=== PATIENT | male | born 1970 | race Caucasian/White ===

== ENCOUNTER → 2016-03-31 | Outpatient (REF) | payer OTHER ==
[~2016-03-31] MED LIST: /CELE20CA; /ZOLP6ER; ALBU17IN2 INH; AMBI10TA PO; ASPI81TAEC PO; BACL10TA2; BACL10TA2 PO; COLA100C2; FOLI1TAB2 PO; FOLI400T PO; LEVA500T PO; LYRI300C; LYRI300C PO; MORP-38 PO; MS C30TA2; PRAV40TA; PRAV80TA PO; PRED10PA2 PO; PROVASTATIN; VICO5TAB
[2016-03-31 05:42] LABS: MEAN CORPUSCULAR HEMOGLOBIN 30.3 pg (27.0-33.0); MEAN CORPUSCULAR HGB CONC 34.9 g/dl (32.0-36.5); PLATELET COUNT, AUTOMATED 221 k/mm3 (150-450); RED CELL DISTRIBUTION WIDTH 12.7 % (11.5-14.5); WHITE BLOOD COUNT 8.5 K/mm3 (4.0-10.0)
[2016-03-31 06:13] LABS: EOSINOPHILS 7 % (0-5); PLATELET CLUMPS SMALL AMT
== END ==
LOC: M LAB REF 05:16
PROVIDERS: ATTEND Family Medicine
DX: J13 Pneumonia due to Streptococcus pneumoniae (principal)

== ENCOUNTER → 2016-05-27 | Outpatient (CLI) | payer OTHER | LOC: M SLEEP 20:10 | PROVIDERS: ATTEND Nurse Practitioner Adult Health | DX: G47.30 Sleep apnea, unspecified (principal) ==

== ENCOUNTER → 2016-06-02 | Outpatient (REF) | payer OTHER ==
[2016-06-02 10:24] LABS: ALBUMIN 4.2 GM/DL (3.2-5.2); ALBUMIN/GLOBULIN RATIO 1.45 (1.00-1.93); ALKALINE PHOSPHATASE 50 U/L (45-117); ALT/SGPT 24 U/L (12-78); ANION GAP 7 MEQ/L (8-16); AST/SGOT 15 U/L (15-37); BILIRUBIN,TOTAL 0.3 MG/DL (0.2-1.0); BLOOD UREA NITROGEN 14 MG/DL (7-18); CALCIUM LEVEL 8.6 MG/DL (8.5-10.1); CARBON DIOXIDE LEVEL 32 MEQ/L (21-32); CHLORIDE LEVEL 105 MEQ/L (98-107); CHOLESTEROL LEVEL 134 MG/DL (<200); CREATININE FOR GFR 0.92 MG/DL (0.70-1.30); GLOMERULAR FILTRATION RATE > 60.0 (>60); GLUCOSE, FASTING 89 MG/DL (70-105); POTASSIUM SERUM 4.5 MEQ/L (3.5-5.1); SODIUM LEVEL 144 MEQ/L (136-145); TOTAL PROTEIN 7.1 GM/DL (6.4-8.2); TRIGLYCERIDES LEVEL 111 MG/DL (<150)
== END ==
LOC: M LAB REF 09:28
PROVIDERS: ATTEND Family Medicine
DX: E78.2 Mixed hyperlipidemia (principal)

== ENCOUNTER → 2016-07-02 | Outpatient (CLI) | payer OTHER ==
--- NOTE | 2016-07-04 09:08 | SLEEPCENT ---
DATE OF PROCEDURE: 07/02/2016 ORDERED BY: MORIAH Arteaga Nocturnal polysomnography was performed for titration of pressure therapy in this patient with obstructive sleep apnea syndrome, apnea hypopnea index of 24.2. For testing, the patient was fit with a [employer]Med Quattro full face mask of large size. 5 cm of water pressure were applied to the circuit and the lights were extinguished. 8 hours and 19 minutes of data were reviewed. There were 434 minutes of sleep identified. Sleep latency was mildly prolonged at 25 minutes. Rapid eye movement (REM) latency was normal at 69 minutes. Sleep architecture was good with 5 REM periods. Overall efficiency was 87%. EKG showed a sinus rhythm with an average heart rate of 76 beats per minute. EEG showed normal waveforms for awake and sleep. Respiratory events were fully palliated with CPAP at pressure of +12. CPAP tolerance was food. Remaining measures of sleep physiology were normal. IMPRESSION: Obstructive sleep apnea syndrome (G47.33). RECOMMENDATION: Nightly use of pressure therapy 12 cm of water.
== END ==
LOC: M SLEEP 19:47
PROVIDERS: ATTEND Nurse Practitioner Adult Health
DX: G47.33 Obstructive sleep apnea (adult) (pediatric) (principal)

== ENCOUNTER → 2016-07-15 | Outpatient (REF) | payer OTHER | LOC: M SFHCLERA 09:49 | PROVIDERS: ATTEND Family Medicine | DX: E55.9 Vitamin D deficiency, unspecified (principal) | CPT/HCPCS: 82306; G0463 ==

== ENCOUNTER → 2017-01-15 | Outpatient (REF) | payer OTHER ==
[~2017-01-15] MED LIST changes: -FOLI1TAB2 PO; +FOLI1TAB4 PO; +LEVA1TAB2 PO; -LEVA500T PO
[2017-01-26 08:13] LABS: SUMMARY SEE SEPARATE REPORT
== END ==
LOC: M SFHCLERA 08:58
PROVIDERS: ATTEND Family Medicine
DX: M54.41 Lumbago with sciatica, right side (principal); Z79.899 Other long term (current) drug therapy
CPT/HCPCS: 80307; 90686; G0463

== ENCOUNTER → 2017-05-22 | Outpatient (REF) | payer OTHER ==
[2017-05-22 09:40] LABS: ALBUMIN 3.9 GM/DL (3.2-5.2); ALBUMIN/GLOBULIN RATIO 1.26 (1.00-1.93); ALKALINE PHOSPHATASE 59 U/L (45-117); ALT/SGPT 51 U/L (12-78); ANION GAP 7 MEQ/L (8-16); AST/SGOT 25 U/L (7-37); BILIRUBIN,TOTAL 0.4 MG/DL (0.2-1.0); BLOOD UREA NITROGEN 15 MG/DL (7-18); CALCIUM LEVEL 8.6 MG/DL (8.5-10.1); CARBON DIOXIDE LEVEL 26 MEQ/L (21-32); CHLORIDE LEVEL 109 MEQ/L (98-107); CHOLESTEROL LEVEL 148 MG/DL (<200); CHOLESTEROL RISK RATIO 4.228 (<5); CREATININE FOR GFR 0.82 MG/DL (0.70-1.30); GLOMERULAR FILTRATION RATE > 60.0 (>60); GLUCOSE, FASTING 95 MG/DL (70-100); HDL CHOLESTEROL 35 MG/DL (>40); LDL CHOLESTEROL 69.8 MG/DL (<100); NON-HDL-C 113 MG/DL; POTASSIUM SERUM 4.4 MEQ/L (3.5-5.1); SODIUM LEVEL 142 MEQ/L (136-145); TRIGLYCERIDES LEVEL 216 MG/DL (<150)
[2017-05-22 09:56] LABS: ESTIMATED AVERAGE GLUCOSE 123 MG/DL (60-110); HEMOGLOBIN A1c 5.9 %
== END ==
LOC: M LAB REF 09:11
DX: E66.9 Obesity, unspecified (principal); E78.2 Mixed hyperlipidemia
CPT/HCPCS: 84443

== ENCOUNTER → 2018-05-31 | Outpatient (REF) | payer MEDICARE, OTHER ==
[~2018-05-31] MED LIST changes: +FOLI1TAB11 PO; -FOLI1TAB4 PO
[2018-05-31 08:37] LABS: BASO # 0.1 10^3/uL (0.0-0.2); BASO % 0.9 % (0.0-1.0); EOS # 0.1 10^3/uL (0.0-0.50); EOS % 1.1 % (0.0-3.0); HEMOGLOBIN 16.3 g/dl (13.5-17.5); LYMPH # 2.9 10^3/uL (1.5-4.5); MEAN CORPUSCULAR HEMOGLOBIN 30.6 pg (27.0-33.0); MEAN CORPUSCULAR HGB CONC 32.6 g/dl (32.0-36.5); MEAN CORPUSCULAR VOLUME 93.8 fl (80.0-96.0); MONO # 0.9 10^3/uL (0.0-0.8); MONO % 10.7 % (0.0-5.0); NEUTROPHILS # 4.3 10^3/uL (1.8-7.7); NEUTROPHILS % 51.9 % (36.0-66.0); PLATELET COUNT, AUTOMATED 197 10^3/uL (150-450); RED BLOOD COUNT 5.33 10^6/uL (4.30-6.10); WHITE BLOOD COUNT 8.2 10^3/uL (4.0-10.0)
[2018-05-31 08:41] LABS: ALBUMIN 3.8 GM/DL (3.2-5.2); ALT/SGPT 28 U/L (12-78); BILIRUBIN,TOTAL 0.3 MG/DL (0.2-1.0); BLOOD UREA NITROGEN 15 MG/DL (7-18); CALCIUM LEVEL 8.7 MG/DL (8.5-10.1); CARBON DIOXIDE LEVEL 30 MEQ/L (21-32); CHLORIDE LEVEL 108 MEQ/L (98-107); CHOLESTEROL LEVEL 129 MG/DL (<200); CHOLESTEROL RISK RATIO 2.931 (<5); CREATININE FOR GFR 0.81 MG/DL (0.70-1.30); GLOMERULAR FILTRATION RATE > 60.0 (>60); GLUCOSE, FASTING 88 MG/DL (70-100); HDL CHOLESTEROL 44 MG/DL (>40); LDL CHOLESTEROL 70 MG/DL (<100); NON-HDL-C 85 MG/DL; POTASSIUM SERUM 4.4 MEQ/L (3.5-5.1); SODIUM LEVEL 143 MEQ/L (136-145); TOTAL PROTEIN 6.5 GM/DL (6.4-8.2); TRIGLYCERIDES LEVEL 73 MG/DL (<150)
[2018-05-31 10:24] LABS: FOLATE 15.1 NG/ML (>5.4)
[2018-05-31 11:22] LABS: VITAMIN B12 LEVEL 419 PG/ML (247-911)
== END ==
LOC: M LAB REF 08:17
PROVIDERS: ATTEND Family Medicine
DX: E78.5 Hyperlipidemia, unspecified (principal); F32.1 Major depressive disorder, single episode, moderate

== ENCOUNTER → 2018-08-04 | Outpatient (CLI) | payer MEDICARE ==
[~2018-08-04] MED LIST changes: -/CELE20CA; +CELE1CAP4
--- NOTE | 2018-08-05 03:30 | REP ---
Clinical: Chronic right shoulder pain. Technique: Internal rotation, external rotation, and Y view of the right shoulder. Findings: Very subtle cortical irregularity at the acromioclavicular joint is appreciated. Remainder examination is normal. Impression: Very subtle suggesting degenerative change at the acromioclavicular joint. Electronically Signed by Adan Phelps MD 08/05/2018 03:22 A
== END ==
LOC: M LRY 08:35
PROVIDERS: ATTEND Family Medicine
DX: M19.011 Primary osteoarthritis, right shoulder (principal); M75.21 Bicipital tendinitis, right shoulder; L72.0 Epidermal cyst

== ENCOUNTER → 2018-11-24 | Outpatient (REF) | payer MEDICARE ==
[~2018-11-24] MED LIST changes: -MORP-38 PO; +MORP-69 PO
[2018-11-24 11:22] LABS: BASO # 0.1 10^3/uL (0.0-0.2); BASO % 1.2 % (0.0-1.0); EOS # 0.1 10^3/uL (0.0-0.5); EOS % 0.7 % (0.0-3.0); HEMATOCRIT 50.9 % (42.0-52.0); HEMOGLOBIN 17.4 g/dl (13.5-17.5); LYMPH # 1.4 10^3/uL (1.5-5.0); LYMPH % 18.7 % (24.0-44.0); MEAN CORPUSCULAR HEMOGLOBIN 31.6 pg (27.0-33.0); MEAN CORPUSCULAR HGB CONC 34.2 g/dl (32.0-36.5); MEAN CORPUSCULAR VOLUME 92.5 fl (80.0-96.0); MONO # 0.7 10^3/uL (0.0-0.8); MONO % 8.9 % (0.0-5.0); NEUTROPHILS # 5.2 10^3/uL (1.5-8.5); NEUTROPHILS % 70.1 % (36.0-66.0); PLATELET COUNT, AUTOMATED 188 10^3/uL (150-450); WHITE BLOOD COUNT 7.5 10^3/uL (4.0-10.0)
[2018-11-24 11:37] LABS: ALBUMIN 4.1 GM/DL (3.2-5.2); ALT/SGPT 58 U/L (12-78); BILIRUBIN,TOTAL 0.4 MG/DL (0.2-1.0); BLOOD UREA NITROGEN 8 MG/DL (7-18); CARBON DIOXIDE LEVEL 30 MEQ/L (21-32); CHLORIDE LEVEL 106 MEQ/L (98-107); CREATININE FOR GFR 0.73 MG/DL (0.70-1.30); GLOMERULAR FILTRATION RATE > 60.0 (>60); GLUCOSE, FASTING 88 MG/DL (70-100); POTASSIUM SERUM 4.2 MEQ/L (3.5-5.1); SODIUM LEVEL 142 MEQ/L (136-145); THYROID STIMULATING HORMONE 0.882 uIU/ML (0.358-3.740); TOTAL PROTEIN 7.4 GM/DL (6.4-8.2)
== END ==
LOC: M SFHCLERA 08:37
PROVIDERS: ATTEND Family Medicine
DX: R10.84 Generalized abdominal pain (principal); R00.0 Tachycardia, unspecified
CPT/HCPCS: 80053; 84443; 85025; 87338; G0463

== ENCOUNTER → 2018-11-25 | Outpatient (REF) | payer MEDICARE | LOC: M SFHCLERA 11:52 | PROVIDERS: ATTEND Family Medicine | DX: R10.84 Generalized abdominal pain (principal) ==

== ENCOUNTER → 2019-01-26 | Outpatient (REF) | payer MEDICARE | LOC: M SFHCLERA 12:54 | PROVIDERS: ATTEND Physician Assistant | DX: J02.9 Acute pharyngitis, unspecified (principal) ==

== ENCOUNTER → 2019-02-22 | Outpatient (REF) | payer MEDICARE | LOC: M LAB REF 18:56 | PROVIDERS: ATTEND Dermatology | DX: L72.0 Epidermal cyst (principal) ==

== ENCOUNTER → 2019-08-19 | Outpatient (REF) | payer MEDICARE ==
[2019-08-19 17:05] LABS: BASO # 0.1 10^3/uL (0.0-0.2); EOS % 0.2 % (0.0-3.0); HEMATOCRIT 47.5 % (42.0-52.0); HEMOGLOBIN 16.8 g/dl (13.5-17.5); LYMPH # 1.5 10^3/uL (1.5-5.0); LYMPH % 18.4 % (24.0-44.0); MEAN CORPUSCULAR HEMOGLOBIN 32.9 pg (27.0-33.0); MEAN CORPUSCULAR HGB CONC 35.4 g/dl (32.0-36.5); MEAN CORPUSCULAR VOLUME 93.1 fl (80.0-96.0); MONO # 0.9 10^3/uL (0.0-0.8); MONO % 10.3 % (0.0-5.0); NEUTROPHILS # 5.8 10^3/uL (1.5-8.5); NEUTROPHILS % 69.9 % (36.0-66.0); PLATELET COUNT, AUTOMATED 159 10^3/uL (150-450); WHITE BLOOD COUNT 8.3 10^3/uL (4.0-10.0)
[2019-08-19 17:34] LABS: BLOOD UREA NITROGEN 12 MG/DL (7-18); CALCIUM LEVEL 9.5 MG/DL (8.5-10.1); CARBON DIOXIDE LEVEL 26 MEQ/L (21-32); CHLORIDE LEVEL 102 MEQ/L (98-107); CHOLESTEROL LEVEL 196 MG/DL (<200); CHOLESTEROL RISK RATIO 2.648 (<5); CREATININE FOR GFR 0.86 MG/DL (0.70-1.30); GLOMERULAR FILTRATION RATE > 60.0 (>60); GLUCOSE, FASTING 105 MG/DL (70-100); HDL CHOLESTEROL 74 MG/DL (>40); LDL CHOLESTEROL 102 MG/DL (<100); NON-HDL-C 122 MG/DL; POTASSIUM SERUM 4.1 MEQ/L (3.5-5.1); SODIUM LEVEL 139 MEQ/L (136-145); TRIGLYCERIDES LEVEL 101 MG/DL (<150)
== END ==
LOC: M SFHCLERA 13:17
PROVIDERS: ATTEND Family Medicine
DX: E78.5 Hyperlipidemia, unspecified (principal); R03.0 Elevated blood-pressure reading, without diagnosis of hypertension

== ENCOUNTER → 2019-08-19 | Outpatient (CLI) | payer MEDICARE ==
--- NOTE | 2019-08-19 16:08 | REP ---
CHEST X-RAY: Three views. HISTORY: Wheezing. COMPARISON CHEST X-RAY: August 16, 2010. FINDINGS: The lungs are slightly hyperinflated but clear. There is a dorsal column stimulator noted in the mid to lower thoracic canal. There is a wedge compression deformity in one of the mid-thoracic vertebrae unchanged from the August 16, 2010 study. The heart is not enlarged. Pulmonary vasculature is not increased. Pleural angles are sharp. Lung alicea are clear. IMPRESSION: Dorsal column stimulator and old wedge compression fracture deformity in the mid T-spine. Mild hyperinflation. Otherwise no active disease. Electronically Signed by uGrdeep Yanez MD 08/19/2019 04:09 P
== END ==
LOC: M LRY 13:21
PROVIDERS: ATTEND Family Medicine
DX: R06.2 Wheezing (principal); E78.5 Hyperlipidemia, unspecified; R03.0 Elevated blood-pressure reading, without diagnosis of hypertension

== ENCOUNTER → 2020-07-17 | Outpatient (REF) | payer MEDICARE ==
[~2020-07-17] MED LIST changes: +ASPI-569 PO; -ASPI81TAEC PO; -FOLI400T PO; +FOLI400T13 PO
[2020-07-17 10:35] LABS: BASO # 0.1 10^3/uL (0.0-0.2); EOS % 0.1 % (0.0-3.0); HEMATOCRIT 52.4 % (42.0-52.0); HEMOGLOBIN 18.2 g/dl (13.5-17.5); LYMPH % 11.1 % (24.0-44.0); MEAN CORPUSCULAR HEMOGLOBIN 32.5 pg (27.0-33.0); MEAN CORPUSCULAR HGB CONC 34.7 g/dl (32.0-36.5); MEAN CORPUSCULAR VOLUME 93.6 fl (80.0-96.0); MONO # 0.9 10^3/uL (0.0-0.8); MONO % 10.2 % (2.0-8.0); NEUTROPHILS % 77.1 % (36.0-66.0); PLATELET COUNT, AUTOMATED 178 10^3/uL (150-450); WHITE BLOOD COUNT 9.1 10^3/uL (4.0-10.0)
[2020-07-17 11:05] LABS: ALBUMIN 4.4 GM/DL (3.2-5.2); ALT/SGPT 127 U/L (12-78); BILIRUBIN,TOTAL 0.8 MG/DL (0.2-1.0); BLOOD UREA NITROGEN 6 MG/DL (7-18); CALCIUM LEVEL 9.5 MG/DL (8.5-10.1); CARBON DIOXIDE LEVEL 28 MEQ/L (21-32); CHLORIDE LEVEL 96 MEQ/L (98-107); CHOLESTEROL LEVEL 259 MG/DL (<200); CHOLESTEROL RISK RATIO 3.547 (<5); CREATININE FOR GFR 0.79 MG/DL (0.70-1.30); GLOMERULAR FILTRATION RATE > 60.0 (>60); GLUCOSE, FASTING 133 MG/DL (70-100); HDL CHOLESTEROL 73 MG/DL (>40); LDL CHOLESTEROL 170 MG/DL (<100); NON-HDL-C 186 MG/DL; POTASSIUM SERUM 4.5 MEQ/L (3.5-5.1); SODIUM LEVEL 132 MEQ/L (136-145); TOTAL PROTEIN 8.1 GM/DL (6.4-8.2); TRIGLYCERIDES LEVEL 78 MG/DL (<150)
[2020-07-17 11:32] LABS: HEMOGLOBIN A1c 5.1 %
== END ==
LOC: M SFHCLERA 10:24
PROVIDERS: ATTEND Family Medicine
DX: E78.5 Hyperlipidemia, unspecified (principal); Z13.1 Encounter for screening for diabetes mellitus; Z79.899 Other long term (current) drug therapy
CPT/HCPCS: 80053; 80061; 83036; 85025; G0463

== ENCOUNTER → 2020-08-29 | Outpatient (CLI) | payer MEDICARE ==
[2020-08-29 08:34] LABS: APPEARANCE, URINE CLEAR (CLEAR); BACTERIA, URINE AUTO NEGATIVE (NEGATIVE); BILIRUBIN, URINE AUTO NEGATIVE (NEGATIVE); BLOOD, URINE BLOOD NEGATIVE (NEGATIVE); COLOR, URINE YELLOW (YELLOW); GLUCOSE, URINE (UA) AUTO NEGATIVE (NEGATIVE); KETONE, URINE AUTO 1+ mg/dL (NEGATIVE); LEUKOCYTE ESTERASE, URINE AUTO NEGATIVE (NEGATIVE); NITRITE, URINE AUTO NEGATIVE (NEGATIVE); PROTEIN, URINE AUTO 1+ mg/dL (NEGATIVE); RBC, URINE AUTO 1 /HPF (0-3); SPECIFIC GRAVITY URINE AUTO 1.013 (1.002-1.035); SQUAMOUS EPITHELIAL CELL UR AU 0 /HPF (0-6); WBC, URINE AUTO 0 /HPF (0-3)
[2020-08-29 08:36] LABS: BASO # 0.1 10^3/uL (0.0-0.2); BASO % 1.3 % (0.0-1.0); EOS % 0.1 % (0.0-3.0); HEMATOCRIT 53.9 % (42.0-52.0); HEMOGLOBIN 18.3 g/dl (13.5-17.5); LYMPH # 1.3 10^3/uL (1.5-5.0); LYMPH % 18.7 % (24.0-44.0); MEAN CORPUSCULAR HEMOGLOBIN 32.3 pg (27.0-33.0); MEAN CORPUSCULAR VOLUME 95.1 fl (80.0-96.0); MONO # 0.9 10^3/uL (0.0-0.8); MONO % 13.4 % (2.0-8.0); NEUTROPHILS # 4.6 10^3/uL (1.5-8.5); NEUTROPHILS % 65.9 % (36.0-66.0); PLATELET COUNT, AUTOMATED 176 10^3/uL (150-450); RED BLOOD COUNT 5.67 10^6/uL (4.30-6.10)
--- NOTE | 2020-08-29 08:41 | REP ---
INDICATION: ELEVATED LFT PT NEEDS LABS AFTER US COMPARISON: 07/05/2014 TECHNIQUE: Real time lock scale ultrasound examination using curved array transducer. FINDINGS: Liver is hyperechoic with decreased through transmission suggesting fatty infiltration. No focal hepatic lesion identified. Pancreas is incompletely evaluated due to interposed bowel gas. The gallbladder is normal and without gallstones, wall thickening, or pericholecystic fluid. No biliary ductal dilatation is appreciated and the common bile duct measures 5.0 mm diameter. Right kidney is normal in reniform shape without hydronephrosis and measures 12.7 x 5.5 x 5.5 cm. No ascites in the visualized right upper quadrant. IMPRESSION: Hepatosteatosis. Otherwise normal right upper quadrant ultrasound. <Electronically signed by Adan Phelps > 08/29/20 [id number]
[2020-08-29 08:49] LABS: INR 0.9; PROTHROMBIN TIME 12.3 SECONDS (12.5-14.3)
[2020-08-29 08:58] LABS: SODIUM,RANDOM URINE 71 MEQ/L
[2020-08-29 09:07] LABS: ALBUMIN 4.4 GM/DL (3.2-5.2); ALT/SGPT 103 U/L (12-78); BILIRUBIN,TOTAL 1.1 MG/DL (0.2-1.0); BLOOD UREA NITROGEN 9 MG/DL (7-18); CALCIUM LEVEL 9.8 MG/DL (8.5-10.1); CARBON DIOXIDE LEVEL 30 MEQ/L (21-32); CHLORIDE LEVEL 100 MEQ/L (98-107); CREATININE FOR GFR 0.79 MG/DL (0.70-1.30); GLOMERULAR FILTRATION RATE > 60.0 (>60); GLUCOSE, FASTING 96 MG/DL (70-100); POTASSIUM SERUM 4.6 MEQ/L (3.5-5.1); SODIUM LEVEL 136 MEQ/L (136-145); TOTAL PROTEIN 8.2 GM/DL (6.4-8.2)
[2020-08-29 09:53] LABS: OSMOLALITY URINE 526 MOSM/KG (50-1400)
[2020-08-29 09:56] LABS: OSMOLALITY SERUM 281 MOSM/KG (275-295)
== END ==
LOC: M LAB 07:29
PROVIDERS: ATTEND Family Medicine
DX: R74.8 Abnormal levels of other serum enzymes (principal); E87.1 Hypo-osmolality and hyponatremia; D75.1 Secondary polycythemia; K76.0 Fatty (change of) liver, not elsewhere classified

== ENCOUNTER → 2020-09-12 | Outpatient (CLI) | payer MEDICARE ==
--- NOTE | 2020-09-12 10:35 | REP ---
INDICATION: BITTEN BY DOG, SUBSEQUENT ENCOUNTER. COMPARISON: None. TECHNIQUE: AP and lateral FINDINGS: No acute fracture or destructive osseous lesion. IMPRESSION: Within normal limits <Electronically signed by Jimenez Frazier > 09/12/20 [id number]
== END ==
LOC: M RAD 09:48
PROVIDERS: ATTEND Family Medicine
DX: S91.052D Open bite, left ankle, subsequent encounter (principal); W54.0XXD Bitten by dog, subsequent encounter
CPT/HCPCS: 73590; G0463

== ENCOUNTER → 2020-12-31 | Outpatient (CLI) | payer MEDICARE ==
--- NOTE | 2020-12-31 12:22 | REP ---
INDICATION: SPLEEN SIZE, HIGH HEMAGLOBIN COMPARISON: None. TECHNIQUE: Real time lock scale ultrasound examination using curved array transducer. FINDINGS: Ultrasound examination of the left upper quadrant was performed. Spleen is normal in contour, size, echogenicity and shape without focal splenic lesion identified. Left kidney is normal in reniform shape and echotexture without hydronephrosis, nephrolithiasis, or cystic/mass lesion. No ascites in the visualized left upper quadrant. Spleen measures 9.9 x 8.6 x 3.2 cm (splenic index 272). Left kidney measures 13.0 x 5.2 x 6.0 cm IMPRESSION: Normal left upper quadrant ultrasound. <Electronically signed by Adan Phelps > 12/31/20 [id number]
== END ==
LOC: M RAD 11:39
PROVIDERS: ATTEND Specialist
DX: R71.8 Other abnormality of red blood cells (principal)

== ENCOUNTER → 2021-01-31 | Outpatient (CLI) | payer MEDICARE ==
[~2021-01-31] MED LIST changes: +LISI10TA22 PO; +PRAV80TA2 PO
--- NOTE | 2021-01-31 09:57 | REP ---
INDICATION: DISORDER OF PENIS LABS AFTER XRAY. COMPARISON: 08/19/2019 the latest prior FINDINGS: The superior mediastinal structures are midline. The cardiac silhouette is unremarkable in size, shape, and position. The diaphragmatic surfaces of the lungs are regular, and the costophrenic angles are clear. The pulmonary alicea are clear. The imaged osseous structures are unchanged. The tip of the dorsal column stimulator is unchanged IMPRESSION: Stable chest <Electronically signed by Jimenez Frazier > 01/31/21 [id number]
[2021-01-31 10:20] LABS: HEMOGLOBIN 17.7 g/dl (13.5-17.5); MEAN CORPUSCULAR HGB CONC 34.7 g/dl (32.0-36.5); PLATELET COUNT, AUTOMATED 178 10^3/uL (150-450); RED BLOOD COUNT 5.37 10^6/uL (4.30-6.10); WHITE BLOOD COUNT 7.4 10^3/uL (4.0-10.0)
[2021-01-31 10:58] LABS: ALBUMIN 3.9 GM/DL (3.2-5.2); ALT/SGPT 81 U/L (12-78); BILIRUBIN,TOTAL 0.5 MG/DL (0.2-1.0); BLOOD UREA NITROGEN 6 MG/DL (7-18); CARBON DIOXIDE LEVEL 23 MEQ/L (21-32); CHLORIDE LEVEL 102 MEQ/L (98-107); CREATININE FOR GFR 0.84 MG/DL (0.70-1.30); GLOMERULAR FILTRATION RATE > 60.0 (>60); GLUCOSE, FASTING 128 MG/DL (70-100); POTASSIUM SERUM 4.1 MEQ/L (3.5-5.1); SODIUM LEVEL 133 MEQ/L (136-145); TOTAL PROTEIN 7.6 GM/DL (6.4-8.2)
== END ==
LOC: M LAB 09:19
PROVIDERS: ATTEND Urology
DX: N48.9 Disorder of penis, unspecified (principal)

== ENCOUNTER → 2021-02-13 | Outpatient (CLI) | payer MEDICARE | LOC: M LABSMTC 10:22 | PROVIDERS: ATTEND Anesthesiology | DX: Z01.812 Encounter for preprocedural laboratory examination (principal); Z20.822 Contact with and (suspected) exposure to COVID-19 ==

== ENCOUNTER 2021-02-18 07:24 | Day surgery (SDC) | payer MEDICARE ==
[~2021-02-18] VITALS: Ht 172.7 cm; Wt 105.2 kg
[~2021-02-18 07:24] MED LIST changes: +LR 1,000 ML IV ONE; +UNRESOLVED CLARIFICATION ENTRY XX SCH
[2021-02-18] MEDS ORDERED: LOSA50TA28 PO (08:03)
[2021-02-18] MEDS ORDERED: SILD100T PO (08:03)
[2021-02-18] MEDS ORDERED: BENA25CA4 PO (08:03)
[2021-02-18] MEDS ORDERED: VALT1TAB PO (08:03)
[2021-02-18] MEDS ORDERED: PRAV80TA2 PO (08:03)
[2021-02-18] MEDS ORDERED: LIDOCAINE 1% SDV 30ML VIAL As Ordered ONE (08:46)
[2021-02-18] MEDS ORDERED: BUPIVACAINE HCL 0.25% 30ML VIAL As Ordered ONE (08:46)
[2021-02-18] MEDS ORDERED: BACITRACIN OINTMENT 30GM TUBE As Ordered ONE (08:46)
[2021-02-18] MEDS ORDERED: MIDAZOLAM INJ 2MG/2ML VIAL (J2250 PER 1MG) As Ordered ONE (09:16)
[2021-02-18] MEDS ORDERED: ACETAMINOPHEN 1000MG 100ML IV BTL (OFIRMEV) (J0131 PER 10MG) As Ordered ONE (09:16)
[2021-02-18] MEDS ORDERED: dexameTHASONE 4 MG/ML 1ML VIAL (J1100 PER 1MG) As Ordered ONE (09:16)
[2021-02-18] MEDS ORDERED: fentaNYL 100 MCG/2 ML INJECTION As Ordered ONE ×2 (09:16→09:31)
[2021-02-18] MEDS ORDERED: METOCLOPRAMIDE INJ 10MG/2ML VIAL (J2765 PER 1) As Ordered ONE (09:16)
[2021-02-18] MEDS ORDERED: propofoL 200 MG/20 ML VIAL As Ordered ONE ×2 (09:16→09:23)
[2021-02-18] MEDS ORDERED: LIDOCAINE 2% 100MG/5ML SDV (FOR ANES.) As Ordered ONE (09:16)
[2021-02-18] MEDS ORDERED: ONDANSETRON 4MG/2ML VIAL As Ordered ONE (09:16)
[2021-02-18] MEDS ORDERED: fentaNYL 100 MCG/2 ML INJECTION IV PRN (10:15)
[2021-02-18] MEDS ORDERED: LR 1,000 ML IV SCH (10:15)
[2021-02-18] MEDS ORDERED: oxyCODONE 5MG TAB PO PRN (10:15)
[2021-02-18] MEDS ORDERED: ONDANSETRON 4MG/2ML VIAL IV PRN (10:15)
[2021-02-18 10:35] VITALS: BP 171/102
== END 2021-02-18 10:59 | disposition home or self-care (01) ==
LOC: M SDC 07:24
PROVIDERS: ATTEND Urology
DX: N48.89 Other specified disorders of penis (principal); N50.89 Other specified disorders of the male genital organs; Z88.0 Allergy status to penicillin; Z88.1 Allergy status to other antibiotic agents; Z91.013 Allergy to seafood; Z91.040 Latex allergy status; Z91.048 Other nonmedicinal substance allergy status
CPT/HCPCS: 11421; 54050; 54060; 88305; J0131; J1100; J2250; J2405; J2765; J3010

== ENCOUNTER → 2021-09-17 | Outpatient (REF) | payer MEDICARE ==
[~2021-09-17] MED LIST changes: +BENA25CA4 PO; +LOSA50TA28 PO; -LR 1,000 ML IV ONE; +SILD100T PO; -UNRESOLVED CLARIFICATION ENTRY XX SCH; +VALT1TAB PO
== END ==
LOC: M SFHCDERM 14:20
PROVIDERS: ATTEND Nurse Practitioner Family
DX: L02.93 Carbuncle, unspecified (principal)

== ENCOUNTER → 2021-09-26 | Outpatient (REF) | payer MEDICARE | LOC: M LAB REF 08:12 | PROVIDERS: ATTEND Surgery | DX: L72.3 Sebaceous cyst (principal) ==

== ENCOUNTER → 2021-11-08 | Outpatient (REF) | payer MEDICARE | LOC: M SFHCDERM 13:54 | PROVIDERS: ATTEND Nurse Practitioner Family | DX: L72.0 Epidermal cyst (principal) ==

== ENCOUNTER 2023-01-06 12:36 | Emergency (ER) | payer MEDICARE ==
[~2023-01-06] VITALS: Ht 170.2 cm; Wt 120.5 kg
[2023-01-06] MEDS ORDERED: PRED20TA (12:52)
[2023-01-06] MEDS ORDERED: DOXY-443 (12:52)
[2023-01-06] MEDS ORDERED: AMLO1TAB25 (12:52)
[2023-01-06 14:01] LABS: BASO # 0.1 10^3/uL (0.0-0.2); EOS # 0.1 10^3/uL (0.0-0.5); EOS % 0.4 % (0.0-3.0); HEMATOCRIT 49.9 % (42.0-52.0); HEMOGLOBIN 17.6 g/dl (13.5-17.5); LYMPH # 2.7 10^3/uL (1.5-5.0); LYMPH % 24.2 % (24.0-44.0); MEAN CORPUSCULAR HEMOGLOBIN 33.7 pg (27.0-33.0); MEAN CORPUSCULAR HGB CONC 35.3 g/dl (32.0-36.5); MEAN CORPUSCULAR VOLUME 95.6 fl (80.0-96.0); MONO # 1.1 10^3/uL (0.0-0.8); MONO % 9.9 % (2.0-8.0); NEUTROPHILS # 7.1 10^3/uL (1.5-8.5); NEUTROPHILS % 63.2 % (36.0-66.0); PLATELET COUNT, AUTOMATED 203 10^3/uL (150-450); RED BLOOD COUNT 5.22 10^6/uL (4.30-6.10); WHITE BLOOD COUNT 11.3 10^3/uL (4.0-10.0)
[2023-01-06 14:30] LABS: BLOOD UREA NITROGEN 7 MG/DL (9-23); C REACTIVE PROTEIN QUANTITATIV < 0.40 MG/DL (<1.0); CALCIUM LEVEL 8.7 MG/DL (8.5-10.1); CARBON DIOXIDE LEVEL 26 MMOL/L (20-31); CHLORIDE LEVEL 98 MMOL/L (98-107); CREATININE FOR GFR 0.62 MG/DL (0.70-1.30); GLOMERULAR FILTRATION RATE > 60.0 (>56); GLUCOSE, FASTING 86 MG/DL (60-100); POTASSIUM SERUM 4.2 MMOL/L (3.5-5.1); SODIUM LEVEL 133 MMOL/L (136-145)
[2023-01-06 15:00] LABS: ERYTHROCYTE SEDIMENTATION RATE 26 mm/hr (0-20)
[2023-01-06] MEDS ORDERED: NS 1,000 ML IV ONE (15:05)
[2023-01-06] MEDS ORDERED: ISOVUE-370 76% 100ML VIAL As Ordered ONE (15:32)
[2023-01-06] MEDS ORDERED: ERYTOIN8 OS (16:34)
[2023-01-06] MEDS ORDERED: DOXY-443 PO (16:34)
[2023-01-06 16:40] VITALS: BP 136/87; TEMP 98.6; O2SAT 18
== END 2023-01-06 17:02 | disposition home or self-care (01) ==
LOC: M ED 12:36
DX: L03.213 Periorbital cellulitis (principal); F17.200 Nicotine dependence, unspecified, uncomplicated; Z79.899 Other long term (current) drug therapy; Z88.0 Allergy status to penicillin; Z88.1 Allergy status to other antibiotic agents; Z88.3 Allergy status to other anti-infective agents; Z91.89 Other specified personal risk factors, not elsewhere classified; Z91.040 Latex allergy status; Z91.013 Allergy to seafood
CPT/HCPCS: 70481; 80048; 85025; 85652; 86140; 96360; 96361; 99284; Q9967

== ENCOUNTER → 2023-02-18 | Outpatient (CLI) | payer MEDICARE ==
[~2023-02-18] MED LIST changes: +AMLO1TAB25; +DOXY-443; +DOXY-443 PO; +ERYTOIN8 OS; +PRED20TA
== END ==
LOC: M PLAIMG 13:35
PROVIDERS: ATTEND Orthopaedic Surgery
DX: M25.511 Pain in right shoulder (principal); M50.121 Cervical disc disorder at C4-C5 level with radiculopathy; M50.122 Cervical disc disorder at C5-C6 level with radiculopathy; M50.123 Cervical disc disorder at C6-C7 level with radiculopathy

== ENCOUNTER → 2023-03-26 | Outpatient (REF) | payer MEDICARE ==
[2023-03-26 14:15] LABS: ALKALINE PHOSPHATASE 64 U/L (46-116); ALT/SGPT 33 U/L (7.0-40); AST/SGOT 20 U/L (<34); BILIRUBIN,TOTAL 0.4 MG/DL (0.3-1.2); BLOOD UREA NITROGEN 9 MG/DL (9-23); CALCIUM LEVEL 8.9 MG/DL (8.5-10.1); CARBON DIOXIDE LEVEL 27 MMOL/L (20-31); CHLORIDE LEVEL 100 MMOL/L (98-107); CHOLESTEROL LEVEL 252 MG/DL (<200); CHOLESTEROL RISK RATIO 4.38 (<5); CREATININE FOR GFR 0.77 MG/DL (0.70-1.30); GLOMERULAR FILTRATION RATE > 60.0 (>56); GLUCOSE, FASTING 96 MG/DL (60-100); HDL CHOLESTEROL 57.5 MG/DL (>40); LDL CHOLESTEROL 174.3 MG/DL (<100); NON-HDL-C 194.5 MG/DL; POTASSIUM SERUM 4.4 MMOL/L (3.5-5.1); SODIUM LEVEL 133 MMOL/L (136-145); TOTAL PROTEIN 7.3 G/DL (5.7-8.2); TRIGLYCERIDES LEVEL 101 MG/DL (<150)
[2023-03-26 14:17] LABS: HEPATITIS B SURFACE ANTIBODY NEGATIVE (POSITIVE)
[2023-03-26 14:32] LABS: HEMOGLOBIN A1c 5.3 % (4.0-6.0)
[2023-03-26 14:51] LABS: HEPATITIS B CORE ANTIBODY IGM NEGATIVE (NEGATIVE); HEPATITIS C VIRUS ABY INDEX 0.24 INDEX (<0.8)
== END ==
LOC: M SFHCLERA 12:06
PROVIDERS: ATTEND Family Medicine
DX: E66.9 Obesity, unspecified (principal); R74.8 Abnormal levels of other serum enzymes; Z79.899 Other long term (current) drug therapy; Z11.59 Encounter for screening for other viral diseases; Z11.3 Encounter for screening for infections with a predominantly sexual mode of transmission; Z72.89 Other problems related to lifestyle

== ENCOUNTER → 2023-03-26 | Outpatient (CLI) | payer MEDICARE ==
[2023-03-26 13:26] LABS: BASO # 0.1 10^3/uL (0.0-0.2); BASO % 0.8 % (0.0-1.0); EOS % 0.2 % (0.0-3.0); HEMATOCRIT 53.3 % (42.0-52.0); HEMOGLOBIN 18.1 g/dl (13.5-17.5); LYMPH # 2.4 10^3/uL (1.5-5.0); LYMPH % 22.8 % (24.0-44.0); MEAN CORPUSCULAR HEMOGLOBIN 32.7 pg (27.0-33.0); MEAN CORPUSCULAR VOLUME 96.2 fl (80.0-96.0); MONO # 1.1 10^3/uL (0.0-0.8); MONO % 10.7 % (2.0-8.0); NEUTROPHILS # 6.8 10^3/uL (1.5-8.5); NEUTROPHILS % 64.7 % (36.0-66.0); PLATELET COUNT, AUTOMATED 215 10^3/uL (150-450); RED BLOOD COUNT 5.54 10^6/uL (4.30-6.10); WHITE BLOOD COUNT 10.5 10^3/uL (4.0-10.0)
[2023-03-26 13:53] LABS: RHEUMATOID FACTOR QUANT < 3.5 IU/ML (<14)
[2023-03-26 14:07] LABS: ERYTHROCYTE SEDIMENTATION RATE 30 mm/hr (0-20)
[2023-03-27 14:09] LABS: ANTINUCLEAR ANTIBODIES DIRECT Negative (Negative)
== END ==
LOC: M PLALAB 11:04
PROVIDERS: ATTEND Physician Assistant
DX: R20.2 Paresthesia of skin (principal); M47.892 Other spondylosis, cervical region; M50.323 Other cervical disc degeneration at C6-C7 level

== ENCOUNTER → 2023-03-27 | Outpatient (REF) | payer MEDICARE | LOC: M SFHCLERA 10:15 | PROVIDERS: ATTEND Family Medicine | DX: R74.8 Abnormal levels of other serum enzymes (principal); E66.9 Obesity, unspecified ==

== ENCOUNTER → 2023-04-22 | Outpatient (REF) | payer MEDICARE ==
[2023-04-22 12:51] LABS: BASO % 0.5 % (0.0-1.0); EOS % 0.5 % (0.0-3.0); HEMOGLOBIN 18.7 g/dl (13.5-17.5); LYMPH # 2.3 10^3/uL (1.5-5.0); LYMPH % 29.5 % (24.0-44.0); MEAN CORPUSCULAR HEMOGLOBIN 32.6 pg (27.0-33.0); MEAN CORPUSCULAR VOLUME 95.8 fl (80.0-96.0); MONO # 0.8 10^3/uL (0.0-0.8); MONO % 10.7 % (2.0-8.0); NEUTROPHILS # 4.4 10^3/uL (1.5-8.5); NEUTROPHILS % 58.1 % (36.0-66.0); PLATELET COUNT, AUTOMATED 217 10^3/uL (150-450); RED BLOOD COUNT 5.74 10^6/uL (4.30-6.10); WHITE BLOOD COUNT 7.6 10^3/uL (4.0-10.0)
== END ==
LOC: M SFHCPLAZ 12:11
PROVIDERS: ATTEND Family Medicine
DX: D58.2 Other hemoglobinopathies (principal)

== ENCOUNTER → 2023-05-12 | Outpatient (CLI) | payer MEDICARE | LOC: M RAD 08:28 | PROVIDERS: ATTEND Surgery | DX: D48.19 Other specified neoplasm of uncertain behavior of connective and other soft tissue (principal) ==

== ENCOUNTER → 2023-05-13 | Outpatient (CLI) | payer MEDICARE ==
[2023-05-13 10:06] LABS: APPEARANCE, URINE CLEAR (CLEAR); BACTERIA, URINE AUTO NEGATIVE (NEGATIVE); BILIRUBIN, URINE AUTO NEGATIVE (NEGATIVE); BLOOD, URINE BLOOD NEGATIVE (NEGATIVE); COLOR, URINE YELLOW (YELLOW); GLUCOSE, URINE (UA) AUTO NEGATIVE (NEGATIVE); KETONE, URINE AUTO NEGATIVE (NEGATIVE); LEUKOCYTE ESTERASE, URINE AUTO NEGATIVE (NEGATIVE); NITRITE, URINE AUTO NEGATIVE (NEGATIVE); PROTEIN, URINE AUTO NEGATIVE (NEGATIVE); RBC, URINE AUTO 0 /HPF (0-3); SPECIFIC GRAVITY URINE AUTO 1.016 (1.002-1.035); SQUAMOUS EPITHELIAL CELL UR AU 0 /HPF (0-6); UROBILINOGEN, URINE AUTO 0.2 mg/dL (0.0-2.0); WBC, URINE AUTO 1 /HPF (0-3)
[2023-05-13 10:21] LABS: BASO # 0.1 10^3/uL (0.0-0.2); BASO % 0.9 % (0.0-1.0); EOS % 0.3 % (0.0-3.0); HEMATOCRIT 55.4 % (42.0-52.0); HEMOGLOBIN 19.2 g/dl (13.5-17.5); LYMPH # 2.3 10^3/uL (1.5-5.0); LYMPH % 19.6 % (24.0-44.0); MEAN CORPUSCULAR HEMOGLOBIN 32.6 pg (27.0-33.0); MEAN CORPUSCULAR HGB CONC 34.7 g/dl (32.0-36.5); MEAN CORPUSCULAR VOLUME 94.1 fl (80.0-96.0); MONO # 1.2 10^3/uL (0.0-0.8); MONO % 10.6 % (2.0-8.0); NEUTROPHILS % 67.7 % (36.0-66.0); PLATELET COUNT, AUTOMATED 217 10^3/uL (150-450); RED BLOOD COUNT 5.89 10^6/uL (4.30-6.10); WHITE BLOOD COUNT 11.7 10^3/uL (4.0-10.0)
[2023-05-13 10:28] LABS: ALBUMIN 4.2 G/DL (3.2-5.2); ALKALINE PHOSPHATASE 60 U/L (46-116); ALT/SGPT 39 U/L (7.0-40); AST/SGOT 21 U/L (<34); BLOOD UREA NITROGEN 15 MG/DL (9-23); CALCIUM LEVEL 9.3 MG/DL (8.5-10.1); CARBON DIOXIDE LEVEL 32 MMOL/L (20-31); CHLORIDE LEVEL 100 MMOL/L (98-107); CREATININE FOR GFR 0.78 MG/DL (0.70-1.30); GLOMERULAR FILTRATION RATE > 60.0 (>56); GLUCOSE, FASTING 117 MG/DL (60-100); POTASSIUM SERUM 4.7 MMOL/L (3.5-5.1); SODIUM LEVEL 134 MMOL/L (136-145); TOTAL PROTEIN 7.4 G/DL (5.7-8.2)
== END ==
LOC: M RAD 08:54
PROVIDERS: ATTEND Family Medicine
DX: D75.1 Secondary polycythemia (principal)

== ENCOUNTER → 2023-06-22 | Outpatient (CLI) | payer MEDICARE | LOC: M RAD 14:25 | PROVIDERS: ATTEND Otolaryngology | DX: R22.9 Localized swelling, mass and lump, unspecified (principal) ==

== ENCOUNTER → 2023-06-30 | Outpatient (CLI) | payer MEDICARE | LOC: M RAD 07:37 | PROVIDERS: ATTEND Specialist | DX: K76.0 Fatty (change of) liver, not elsewhere classified (principal) ==

== ENCOUNTER → 2023-07-14 | Outpatient (CLI) | payer MEDICARE | LOC: M RAD 08:51 | PROVIDERS: ATTEND Specialist | DX: Z12.2 Encounter for screening for malignant neoplasm of respiratory organs (principal); F17.210 Nicotine dependence, cigarettes, uncomplicated; D75.1 Secondary polycythemia; R91.8 Other nonspecific abnormal finding of lung field ==

== ENCOUNTER 2023-08-24 11:19 | Day surgery (SDC) | payer MEDICARE ==
[~2023-08-24] VITALS: Ht 175.3 cm; Wt 113.0 kg
[~2023-08-24 11:19] MED LIST changes: -AMLO1TAB25; +AMLO1TAB25 PO; +DOXY-323; +DOXY-323 PO; -DOXY-443; -DOXY-443 PO; +LOSA100T46 PO; +MELO15TA28 PO; +PREG300C2 PO; +PREV1CAP PO; +TRAZ-189 PO; +ZOLP10TA2 PO
[2023-08-24] MEDS: LR 1,000 ML IV SCH (13:27)
[2023-08-24] MEDS ORDERED: BACITRACIN OINTMENT 30GM TUBE As Ordered ONE (14:20)
[2023-08-24] MEDS ORDERED: propofoL 200 MG/20 ML VIAL As Ordered ONE (14:22)
[2023-08-24] MEDS ORDERED: ONDANSETRON 4MG 2ML VIAL As Ordered ONE (14:22)
[2023-08-24] MEDS ORDERED: ROCURONIUM BROMIDE 50MG/5ML VIAL As Ordered ONE (14:22)
[2023-08-24] MEDS ORDERED: LIDOCAINE 2% 100MG/5ML SDV (FOR ANES.) As Ordered ONE (14:22)
[2023-08-24] MEDS ORDERED: MIDAZOLAM INJ 2MG/2ML VIAL As Ordered ONE (14:23)
[2023-08-24] MEDS ORDERED: fentaNYL 100 MCG/2 ML INJECTION As Ordered ONE (14:23)
[2023-08-24] MEDS ORDERED: ACETAMINOPHEN 1000MG 100ML IV BAG As Ordered ONE (14:26)
[2023-08-24] MEDS ORDERED: dexmedeTOMIDine (4MCG/ML)200MCG/50ML BTL (PRECEDEX) As Ordered ONE (14:26)
[2023-08-24] MEDS ORDERED: LACRILUBE (AKWA TEARS) OPHTH OINT 3.5GM As Ordered ONE (14:50)
[2023-08-24] MEDS ORDERED: ESMOLOL INJ 100MG/10ML VIAL As Ordered ONE (15:06)
[2023-08-24] MEDS ORDERED: SUGAMMADEX SODIUM 500 MG/5 ML VIAL (BRIDION) As Ordered ONE (15:09)
[2023-08-24] MEDS: LIDOCAINE W/EPINEPHRINE 1% 20ML VIAL As Ordered ONE (15:18)
[2023-08-24] MEDS ORDERED: ONDANSETRON 4MG 2ML VIAL IV PRN (15:40)
[2023-08-24] MEDS ORDERED: oxyCODONE 5MG TAB PO PRN (15:40)
[2023-08-24] MEDS ORDERED: LR 1,000 ML IV SCH ×2 (15:40→16:20)
[2023-08-24] MEDS ORDERED: fentaNYL 100 MCG/2 ML INJECTION IV PRN (15:40)
[2023-08-24] MEDS ORDERED: HYDROMORPHONE HCL 0.5 MG/ 0.5 ML SYRINGE IV PRN (15:40)
[2023-08-24] MEDS ORDERED: ANEXSIA, NORCO 7.5MG/325MG TABLET(HYDROCODONE/APAP) PO PRN (16:20)
[2023-08-24 16:25] VITALS: BP 167/95; TEMP 98; O2SAT 95
== END 2023-08-24 16:50 | disposition home or self-care (01) ==
LOC: M SDC 11:19
PROVIDERS: ATTEND Otolaryngology
DX: L72.0 Epidermal cyst (principal); K11.5 Sialolithiasis; G47.30 Sleep apnea, unspecified; Z68.37 Body mass index [BMI] 37.0-37.9, adult; Z88.1 Allergy status to other antibiotic agents; Z88.8 Allergy status to other drugs, medicaments and biological substances; Z88.0 Allergy status to penicillin; Z91.040 Latex allergy status; Z91.013 Allergy to seafood; Z91.048 Other nonmedicinal substance allergy status; Z79.899 Other long term (current) drug therapy; F17.210 Nicotine dependence, cigarettes, uncomplicated
CPT/HCPCS: 21014; 88305; J0131; J1100; J1805; J2250; J2405; J3010

== ENCOUNTER → 2023-12-09 | Outpatient (REF) | payer MEDICARE ==
[2023-12-09 19:41] LABS: ALBUMIN 3.7 G/DL (3.2-5.2); ALKALINE PHOSPHATASE 82 U/L (46-116); ALT/SGPT 42 U/L (7.0-40); AST/SGOT 29 U/L (<34); BILIRUBIN,TOTAL 0.3 MG/DL (0.3-1.2); BLOOD UREA NITROGEN 9 MG/DL (9-23); CALCIUM LEVEL 9.4 MG/DL (8.5-10.1); CARBON DIOXIDE LEVEL 24 MMOL/L (20-31); CHLORIDE LEVEL 103 MMOL/L (98-107); CREATININE FOR GFR 0.78 MG/DL (0.70-1.30); GLOMERULAR FILTRATION RATE > 60.0 (>56); GLUCOSE, FASTING 113 MG/DL (60-100); SODIUM LEVEL 133 MMOL/L (136-145)
== END ==
LOC: M SFHCLERA 13:43
PROVIDERS: ATTEND Family Medicine
DX: Z01.818 Encounter for other preprocedural examination (principal)

== ENCOUNTER → 2024-03-02 | Outpatient (CLI) | payer MEDICARE ==
[~2024-03-02] MED LIST changes: -DOXY-323; -DOXY-323 PO; +DOXY-441; +DOXY-441 PO
== END ==
LOC: M RAD 07:05
PROVIDERS: ATTEND Internal Medicine Medical Oncology
DX: R91.1 Solitary pulmonary nodule (principal)

== ENCOUNTER → 2024-11-10 | Outpatient (CLI) | payer MEDICARE ==
[~2024-11-10] MED LIST changes: -AMBI10TA PO; -PRAV80TA2 PO; +PRAV80TA75 PO; +ZOLP-533 PO
[2024-11-10 11:25] LABS: BASO # 0.1 10^3/uL (0.0-0.2); BASO % 0.9 % (0.0-1.0); EOS # 0.0 10^3/uL (0.0-0.5); EOS % 0.2 % (0.0-3.0); LYMPH # 1.9 10^3/uL (1.5-5.0); LYMPH % 19.1 % (24.0-44.0); MONO # 0.9 10^3/uL (0.0-0.8); MONO % 8.8 % (2.0-8.0); NEUTROPHILS # 6.8 10^3/uL (1.5-8.5); NEUTROPHILS % 70.0 % (36.0-66.0); PLATELET COUNT, AUTOMATED 252 10^3/uL (150-450)
[2024-11-10 12:00] LABS: ALT/SGPT 66 U/L (7.0-40); AST/SGOT 55 U/L (<34); CALCIUM LEVEL 10.1 MG/DL (8.5-10.1); CARBON DIOXIDE LEVEL 31 MMOL/L (20-31); CHLORIDE LEVEL 100 MMOL/L (98-107); CREATININE FOR GFR 0.69 MG/DL (0.70-1.30); GLOMERULAR FILTRATION RATE > 90.0 (>56); HEPATITIS B SURFACE ANTIBODY NEGATIVE (POSITIVE); PHOSPHORUS LEVEL 3.9 MG/DL (2.5-4.9); POTASSIUM SERUM 4.7 MMOL/L (3.5-5.1); SODIUM LEVEL 139 MMOL/L (136-145)
[2024-11-10 12:20] LABS: HIV 1&2 SCREEN NEGATIVE (NEGATIVE)
[2024-11-10 12:28] LABS: HEPATITIS C VIRUS ABY INDEX 0.14 INDEX (<0.8)
== END ==
LOC: M RAD 09:52
PROVIDERS: ATTEND Nurse Practitioner Family
DX: L73.2 Hidradenitis suppurativa (principal); Z11.59 Encounter for screening for other viral diseases

== ENCOUNTER → 2025-02-07 | Outpatient (CLI) | payer MEDICARE ==
[~2025-02-07] MED LIST changes: +E-Z-GAS II EFFERVESCENT PACKET (SODIUM BICARB./CITRIC ACID/SIMETHICONE) As Ordered ONE; +E-Z-HD 98% w/w 340 GM SUSP BTL As Ordered ONE; +E-Z-PAQUE 96% w/w SUSP 176 GM BTL As Ordered ONE; +ZOLP10TA11 PO; -ZOLP10TA2 PO
== END ==
LOC: M RAD 07:57
PROVIDERS: ATTEND Family Medicine
DX: R13.10 Dysphagia, unspecified (principal)

== ENCOUNTER → 2025-03-03 | Outpatient (CLI) | payer MEDICARE ==
[~2025-03-03] MED LIST changes: -E-Z-GAS II EFFERVESCENT PACKET (SODIUM BICARB./CITRIC ACID/SIMETHICONE) As Ordered ONE; -E-Z-HD 98% w/w 340 GM SUSP BTL As Ordered ONE; -E-Z-PAQUE 96% w/w SUSP 176 GM BTL As Ordered ONE
== END ==
LOC: M SOG 08:19
PROVIDERS: ATTEND Physician Assistant
DX: M25.532 Pain in left wrist (principal)